=== PATIENT | male | born 1985 | race Caucasian/White ===

== ENCOUNTER 2022-11-08 18:34 | Emergency (ER) | payer OTHER ==
--- NOTE | 2022-11-08 18:38 | ERPHSYRPT ---
- History of Present Illness Time Seen by Provider: 11/08/22 18:37 Source: patient Exam Limitations: no limitations Physician History: Patient is a 37-year-old male presents to our ED via EMS for evaluation after being found unresponsive by his . Upon EMS arrival patient's is administering intranasal Narcan. Patient responded to Narcan. Upon arrival patient was alert and oriented x3. No trauma reported. Timing/Duration: today Severity: moderate Modifying Factors: Improves With: nothing Associated Symptoms: denies symptoms Allergies/Adverse Reactions: No Known Drug Allergies Allergy (Unverified 09/02/12 05:38) Home Medications: No Reportable Medications [No Reported Medications] 11/08/22 [History] Hx Tetanus, Diphtheria Vaccination/Date Given: Yes Hx Influenza Vaccination/Date Given: No Hx Pneumococcal Vaccination/Date Given: No - Review of Systems Constitutional: No Symptoms, No Fever, No Chills Eyes: No Symptoms Ears, Nose, & Throat: No Symptoms Respiratory: No Symptoms, No Cough, No Dyspnea Cardiac: No Symptoms, No Chest Pain, No Edema, No Syncope Abdominal/Gastrointestinal: No Symptoms, No Abdominal Pain, No Nausea, No Vomiting, No Diarrhea Genitourinary Symptoms: No Symptoms, No Dysuria Musculoskeletal: No Symptoms, No Back Pain, No Neck Pain Skin: No Symptoms, No Rash Neurological: No Symptoms, No Dizziness, No Focal Weakness, No Sensory Changes Psychological: No Symptoms Endocrine: No Symptoms Hematologic/Lymphatic: No Symptoms Immunological/Allergic: No Symptoms All Other Systems: Reviewed and Negative - Past Medical History Pertinent Past Medical History: Yes Psycho-Social History: Depression Other Medical History: chronic back pain - Past Surgical History Past Surgical History: No - Social History Smoking Status: Current every day smoker Exposure to second hand smoke: No Patient Lives Alone: No - Nursing Vital Signs Nursing Vital Signs: Initial Vital Signs Temperature 96.7 F 11/08/22 18:38 Pulse Rate 88 11/08/22 18:38 Respiratory Rate 16 11/08/22 18:38 Blood Pressure 141/89 11/08/22 18:38 O2 Sat by Pulse Oximetry 99 11/08/22 18:38 Pain Scale Pain Intensity 0 - Physical Exam General Appearance: no apparent distress, alert Eye Exam: PERRL/EOMI, eyes nml inspection Ears, Nose, Throat Exam: normal ENT inspection, TMs normal, pharynx normal, anila st mucous membranes Neck Exam: normal inspection, non-tender, supple, full range of motion Respiratory Exam: normal breath sounds, lungs clear, airway intact, No respiratory distress Cardiovascular Exam: regular rate/rhythm, normal heart sounds, normal peripheral pulses Gastrointestinal/Abdomen Exam: soft, normal bowel sounds, No tenderness, No mass Back Exam: normal inspection, normal range of motion, No CVA tenderness, No vertebral tenderness Extremity Exam: normal inspection, normal range of motion, pelvis stable Neurologic Exam: alert, oriented x 3, cooperative, normal mood/affect, sensation nml, No motor deficits Skin Exam: normal color, warm, dry, No rash Lymphatic Exam: No adenopathy SpO2 Interpretation: normal SpO2: 99 O2 Delivery: Room Air - Course Nursing assessment & vital signs reviewed: Yes EKG Interpreted by Me: RATE ([id number]), Sinus Rhythm, NORMAL AXIS, NORMAL INTERVALS - CT Exams Chest CT Interpretation: Tele-radiologist Report (No comps. Normal CT PE exam.) Ordered Tests: Active Orders 24 hr Category Date Time Status AMA [Release AMA] OM.NOW Care 11/08/22 21:54 Active CO2 Monitoring STAT Care 11/08/22 18:50 Active Shipping Room Supervisor STAT Care 11/08/22 18:39 Active EKG-ER Only STAT Care 11/08/22 18:38 Active IV Insertion STAT Care 11/08/22 18:38 Active Pulse Oximetry (ED) STAT Care 11/08/22 18:38 Active CHEST 1 VIEW (PORTABLE) Stat Exams 11/08/22 18:39 Taken CHEST WITH CONTRAST [CT] Stat Exams 11/08/22 19:42 Taken ACETAMINOPHEN Stat Lab 11/08/22 18:45 Completed ARTERIAL BLOOD GASES Urgent Lab 11/08/22 18:38 Completed CBC W DIFF Stat Lab 11/08/22 18:45 Completed CMP Stat Lab 11/08/22 18:45 Completed D-DIMER QUANTITATIVE Stat Lab 11/08/22 18:45 Completed ETHYL ALCOHOL Stat Lab 11/08/22 18:45 Completed SALICYLATE Stat Lab 11/08/22 18:45 Completed TROPONIN Q4H Lab 11/08/22 18:45 Completed TROPONIN Q4H Lab 11/08/22 22:45 Ordered TROPONIN Q4H Lab 11/09/22 02:45 Ordered Urine Triage Profile Stat Lab 11/08/22 18:39 Ordered Medication Summary Generic Name Dose Route Start Last Admin Trade Name Freq PRN Reason Stop Dose Admin Sodium Chloride 1,000 mls @ 100 mls/hr 11/08/22 18:45 11/08/22 21:41 Sodium Chloride 0.9% 1000 Ml IV 12/08/22 18:44 999 mls/hr .Q10H ANNABEL Infusion Discontinued Medications Generic Name Dose Route Start Last Admin Trade Name Denis PRN Reason Stop Dose Admin Potassium Chloride 40 meq 11/08/22 21:38 11/08/22 21:43 Potassium Chloride Tab 10 Meq Tab PO 11/08/22 21:39 40 meq STAT ONE Administration Potassium Chloride Confirm 11/08/22 21:42 Potassium Chloride Tab 10 Meq Tab Administered 11/08/22 21:43 Dose 40 meq PO .STK-MED ONE Lab/Rad Data: Laboratory Result Diagrams 11/08/22 18:45 11/08/22 18:45 Laboratory Results 11/08/22 11/08/22 11/08/22 Range/Units 18:45 18:45 18:45 WBC (4.0-10.5) x10^3/uL RBC (4.1-5.6) x10^6/uL Hgb (12.5-18.0) g/dL Hct (42-50) % MCV (78-100) fL MCH (26-32) pg MCHC (32-36) g/dL RDW (11.5-14.0) % Plt Count (150-450) x10^3/uL MPV (7.5-11.0) fL Gran % (36.0-66.0) % Immature Gran % (Auto) (0.00-0.4) % Nucleat RBC Rel Count (0.00-0.1) % Eos # (Auto) (0-0.5) x10^3/uL Immature Gran # (Auto) (0.00-0.03) x10^3u/L Absolute Lymphs (auto) (1.0-4.6) x10^3/uL Absolute Monos (auto) (0.0-1.3) x10^3/uL Absolute Nucleated RBC (0.00-0.01) x10^3u/L Lymphocytes % (24.0-44.0) % Monocytes % (0.0-12.0) % Eosinophils % (0.00-5.0) % Basophils % (0.0-0.4) % Absolute Granulocytes (1.4-6.9) x10^3/uL Basophils # (0-0.4) x10^3/uL D-Dimer 0.81 H* (0.0-0.50) mg/L Puncture Site pCO2 (35-45) mmHg pO2 (75-100) mmHg Base Excess (-2.0-2.0) O2 Saturation (94-100) g/dF ABG pH (7.35-7.45) ABG HCO3 (22-28) ABG O2 Sat (Measured) (95-100) % Channing Test A-a Gradient a/A Ratio Hemoglobin Carboxyhemoglobin (0.0-6.9) % THgb Methemoglobin (1.4-1.5) % Potassium (3.5-5.1) Temperature C POC O2 Flow Rate % Sodium (137-145) mmol/L Chloride (98-107) mmol/L Carbon Dioxide (22-30) mmol/L Anion Gap (5-15) MEQ/L BUN (9-20) mg/dL Creatinine (0.66-1.25) mg/dL Estimated GFR ML/MIN Glucose (74-106) mg/dL Calcium (8.4-10.2) mg/dL Total Bilirubin (0.2-1.3) mg/dL AST (17-59) U/L ALT (0-50) U/L Alkaline Phosphatase (38-126) U/L Troponin I < 0.012 (0.000-0.034) ng/mL Serum Total Protein (6.3-8.2) g/dL Albumin (3.5-5.0) g/dL Salicylates < 1.0 L (2-20) mg/dL Acetaminophen < 10 L (10-30) ug/ml Ethyl Alcohol (0-10) mg/dL 11/08/22 11/08/22 11/08/22 Range/Units 18:45 18:45 18:38 WBC 6.4 (4.0-10.5) x10^3/uL RBC 4.78 (4.1-5.6) x10^6/uL Hgb 13.6 (12.5-18.0) g/dL Hct 42.9 (42-50) % MCV 89.7 (78-100) fL MCH 28.5 (26-32) pg MCHC 31.7 L (32-36) g/dL RDW 12.1 (11.5-14.0) % Plt Count 184 (150-450) x10^3/uL MPV 10.2 (7.5-11.0) fL Gran % 41.9 (36.0-66.0) % Immature Gran % (Auto) 0.0 (0.00-0.4) % Nucleat RBC Rel Count 0.0 (0.00-0.1) % Eos # (Auto) 0.12 (0-0.5) x10^3/uL Immature Gran # (Auto) 0.00 (0.00-0.03) x10^3u/L Absolute Lymphs (auto) 2.95 (1.0-4.6) x10^3/uL Absolute Monos (auto) 0.61 (0.0-1.3) x10^3/uL Absolute Nucleated RBC 0.00 (0.00-0.01) x10^3u/L Lymphocytes % 46.2 H (24.0-44.0) % Monocytes % 9.5 (0.0-12.0) % Eosinophils % 1.9 (0.00-5.0) % Basophils % 0.5 (0.0-0.4) % Absolute Granulocytes 2.68 (1.4-6.9) x10^3/uL Basophils # 0.03 (0-0.4) x10^3/uL D-Dimer (0.0-0.50) mg/L Puncture Site LEFT RADIAL pCO2 47 H (35-45) mmHg pO2 98 (75-100) mmHg Base Excess 3.5 H (-2.0-2.0) O2 Saturation 95.1 (94-100) g/dF ABG pH 7.40 (7.35-7.45) ABG HCO3 29.1 H* (22-28) ABG O2 Sat (Measured) 99.1 (95-100) % Channing Test yes A-a Gradient -7 a/A Ratio 1.08 Hemoglobin 14.1 Carboxyhemoglobin 3.2 (0.0-6.9) % THgb Methemoglobin 0.8 L (1.4-1.5) % Potassium 3.4 L 3.3 L (3.5-5.1) Temperature 37.0 C POC O2 Flow Rate 21 % Sodium 142 (137-145) mmol/L Chloride 100 (98-107) mmol/L Carbon Dioxide 27 (22-30) mmol/L Anion Gap 18.8 H (5-15) MEQ/L BUN 14 (9-20) mg/dL Creatinine 1.27 H (0.66-1.25) mg/dL Estimated GFR > 60.0 ML/MIN Glucose 187 H (74-106) mg/dL Calcium 8.8 (8.4-10.2) mg/dL Total Bilirubin 0.80 (0.2-1.3) mg/dL AST 56 (17-59) U/L ALT 31 (0-50) U/L Alkaline Phosphatase 79 (38-126) U/L Troponin I (0.000-0.034) ng/mL Serum Total Protein 7.4 (6.3-8.2) g/dL Albumin 4.4 (3.5-5.0) g/dL Salicylates (2-20) mg/dL Acetaminophen (10-30) ug/ml Ethyl Alcohol < 10 (0-10) mg/dL - Progress Progress: improved Progress Note: Patient reassessed. Patient is alert and oriented x4. Work-up reveals mild hypokalemia. Potassium replacement ordered. Lab evaluation reveals dehydration. IV fluids administered. Patient observed in our ED for approximately 3 to 4 hours. Patient maintained normal level of consciousness without additional Narcan administration. Patient's presented to our ED. She advised that patient has a history of narcotic abuse. Patient states that he overdosed on his 's [place]. acknowledges that patient has a history of narcotic abuse and therefore administered Narcan. Patient responded to the Narcan. Patient states he feels well. Vital stable. Patient requesting discharge. We advised admission due to the need for further observation. Patient declined. Patient request to leave AGAINST MEDICAL ADVICE. Patient is of sound mind. Patient is appropriate to make informed and independent medical decisions. Patient understands that leaving AGAINST MEDICAL ADVICE can result in delayed diagnosis, increased risk of morbidity, mortality, short and long-term disability including . In spite of these risks, patient has decided to leave AGAINST MEDICAL ADVICE. Patient understands that he may return to our ED at any point if he reconsiders. Patient agrees to follow-up with his primary care doctor within 48 hours for reevaluation. Patient voices no other complaints or concerns at this time. We will release patient AGAINST MEDICAL ADVICE per their request. Testing includes EKG, chest x-ray, CTA chest, acetaminophen level, CBC, CMP, D- dimer which resulted as positive. Positive D-dimer is the reason why CTA chest was ordered. Detailed H level ordered. Aspirin level ordered. Urine triage ordered. Troponin ordered. Patient has not urinated therefore urine triage has not been performed. Patient left AMA before urine triage can be performed. ABG ordered. Work-up reveals low potassium. Patient received oral potassium replacement. IV fluids administered. Patient will leave AGAINST MEDICAL ADVICE. Complexity of problem addressed is acute. Complexity is high. Patient was somewhat confused patient had acutely overdosed on [place]. Age gender, PMH/PQ , (co-morbidities that complicate presentation) , med class, PSH, (smoker) method of arrival, CC (acute, chronic or acute on chronic), State COPA level and why or if critical. vitals, Significant ROS/PE findings, working diagnoses, No critical care time. Complexity of data reviewed and analyzed is moderate. Test ordered. Test reviewed. EMS served as independent historian. Patient significant other also contributed significantly to the HPI. Patient did not serve as independent historian. Risk of complication and or risk of morbidity/mortality of patient management is high. However patient agrees to follow-up with his primary care doctor within 48 hours for evaluation. Patient acknowledges that he has a severe addiction problem. Patient states he will seek help for further evaluation and treatment. P portions of this note were created with voice recognition technology. There may be grammatical, spelling, punctuation or sound alike errors Vital stable at time of discharge. 11/08/22 22:07 11/08/22 22:11 Counseled pt/family regarding: lab results, diagnosis, need for follow-up, rad results - Departure Departure Disposition: AMA Clinical Impression: [place] overdose, Hypokalemia, Dehydration Condition: Stable Critical Care Time: No Referrals: CINDI MONTIEL [NON-STAFF PHY W/O PRIVILEGES] - Follow up/PCP as directed Additional Instructions: Discharge/Care Plan LEE URIOSTEGUI JAYSON was seen on 11/08/22 in the Emergency Room. The patient was counseled regarding Diagnosis,Lab results, Imaging studies, need for follow up and when to return to the Emergency Room. Prescriptions given: Discharge Note I have spoken with the patient and/or caregivers. I have explained the patient's condition, diagnosis and treatment plan based on the information available to me at this time. I have answered the patient's and/or caregiver's questions and addressed any concerns. The patient and/or caregivers have as good understanding of the patient's diagnosis, condition and treatment plan as can be expected at this point. The vital signs have been stable. The patient's condition is stable and appropriate for discharge from the emergency department. The patient will pursue further outpatient evaluation with the primary care jc terrell or other designated or consulting physician as outlined in the discharge instructions. The patient and/or caregivers are agreeable to this plan of care and follow-up instructions have been explained in detail. The patient and/or caregivers have received these instruction. The patient/and or caregivers are aware that any significant change in condition or worsening of symptoms should prompt an immediate return to this or the closest emergency department or call 911.
[2022-11-08] MEDS ORDERED: Sodium Chloride 0.9% 1000 ML 1,000 ML IV SCH (18:45)
[2022-11-08 18:48] LABS: A-aADO2 -7; ABG HEMOGLOBIN 14.1; ABG POTASSIUM 3.3 (3.5-5.1); ABG SITE LEFT RADIAL; ALLEN TEST OK? yes; ARTERIAL BLD GAS O2 SATURATION 99.1 % (95-100); ARTERIAL BLOOD GAS BASE EXCESS 3.5 (-2.0-2.0); ARTERIAL BLOOD GAS FIO2 21 %; ARTERIAL BLOOD GAS PCO2 47 mmHg (35-45); ARTERIAL BLOOD GAS PO2 98 mmHg (75-100); CARBOXYHEMOGLOBIN 3.2 % THgb (0.0-6.9); HCO3- 29.1 (22-28); HGB O2 SAT 95.1 g/dF (94-100); Methhemoglobin 0.8 % (1.4-1.5); paO2 pAO1 1.08
[2022-11-08] MEDS ORDERED: Sodium Chloride 0.9% 1000 ML 1,000 ML ONE (18:54)
[2022-11-08 18:56] LABS: Absolute Neutrophil Ct (ANC) 2.68 x10^3/uL (1.4-6.9); BASOPHIL % 0.5 % (0.0-0.4); Basophil (Absolute #) 0.03 x10^3/uL (0-0.4); Eosinophil % 1.9 % (0.00-5.0); Eosinophil (Absolute #) 0.12 x10^3/uL (0-0.5); Hematocrit 42.9 % (42-50); Hemoglobin 13.6 g/dL (12.5-18.0); Lymphocyte (Absolute #) 2.95 x10^3/uL (1.0-4.6); Lymphocytes % 46.2 % (24.0-44.0); Mean Cell Volume 89.7 fL (78-100); Mean Corpuscular Hemoglobin 28.5 pg (26-32); Mean Corpuscular Hgb Concent. 31.7 g/dL (32-36); Mean Platelet Volume 10.2 fL (7.5-11.0); Monocyte (Absolute #) 0.61 x10^3/uL (0.0-1.3); Monocytes % 9.5 % (0.0-12.0); Neutrophil % 41.9 % (36.0-66.0); Platelet Count 184 x10^3/uL (150-450); Red Blood Count 4.78 x10^6/uL (4.1-5.6); Red Cell Distribution Width 12.1 % (11.5-14.0); White Blood Count 6.4 x10^3/uL (4.0-10.5)
[2022-11-08 19:13] LABS: ACETAMINOPHEN < 10 ug/ml (10-30); ALBUMIN 4.4 g/dL (3.5-5.0); ALKALINE PHOSPHATASE 79 U/L (38-126); ANION GAP 18.8 MEQ/L (5-15); BLOOD UREA NITROGEN 14 mg/dL (9-20); CHLORIDE 100 mmol/L (98-107); Calcium 8.8 mg/dL (8.4-10.2); Carbon Dioxide 27 mmol/L (22-30); Creatinine 1 1.27 mg/dL (0.66-1.25); EST GLOMERULAR FILTRATION RATE > 60.0 ML/MIN; ETHYL ALCOHOL < 10 mg/dL (0-10); Glucose 187 mg/dL (74-106); Potassium 3.4 mmol/L (3.5-5.1); SALICYLATE < 1.0 mg/dL (2-20); SGOT/AST 56 U/L (17-59); SGPT/ALT 31 U/L (0-50); SODIUM 142 mmol/L (137-145); Total Protein 7.4 g/dL (6.3-8.2)
[2022-11-08 21:14] VITALS: BP 113/71; PULSE 67
[2022-11-08] MEDS ORDERED: Klor Con PO ONE ×2 (21:38→21:42)
[2022-11-08 21:45] VITALS: O2SAT 99
--- NOTE | 2022-11-09 08:37 | XRAY ---
Indication: Short of breath. Found unresponsive. Comparison: None Portable chest demonstrates normal heart, lungs, and bony thorax with incidental left retrocardiac calcified granuloma.
--- NOTE | 2022-11-09 08:37 | XRAY ---
Indication: Short of breath. Elevated d-dimer. Dominant embolus. Multiple contiguous axial images obtained through the chest using 80 cc Isovue 370 contrast and PE protocol. Comparison: None Good opacification of the pulmonary arteries to include the lobar and segmental branches. No pulmonary embolus. Heart is not enlarged. Aorta is normal in course and caliber. A few tiny subcarinal and chunky left infrahilar calcified nodes. No pathologic mediastinal/hilar lymphadenopathy. Lungs inflated and clear with incidental tiny left posterior gutter calcified granuloma. Bony thorax intact. Limited upper abdomen including adrenal glands are unremarkable. Impression: 1. Negative pulmonary embolus. No acute cardiopulmonary abnormalities. 2. Incidental old granulomatous disease.
== END 2022-11-08 22:10 | disposition left against medical advice (07) ==
LOC: ED 18:34
DX: T40.2X1A Poisoning by other opioids, accidental (unintentional), initial encounter (principal); T39.1X1A Poisoning by 4-Aminophenol derivatives, accidental (unintentional), initial encounter; R40.4 Transient alteration of awareness; E87.6 Hypokalemia; E86.0 Dehydration; Z72.0 Tobacco use
CPT/HCPCS: 36000; 36415; 36600; 71045; 71260; 80053; 80143; 80179; 82077; 82375; 82803; 84484; 85025; 85379; 93005; 93041; 94760; 96360; 96361; 99284; A9270-GY

== ENCOUNTER 2024-05-15 14:48 | Emergency (ER) | payer OTHER ==
[2024-05-15] MEDS ORDERED: XYLOCAINE 1% HCL 20 ML MDV ONE (14:58)
[2024-05-15 15:13] VITALS: RESP 18; TEMP 97.8; O2SAT 97
[2024-05-15] MEDS ORDERED: Adacel Vial IM ONE (15:16)
[2024-05-15] MEDS: XYLOCAINE 1% HCL 20 ML MDV IJ ONE (15:22)
[2024-05-15] MEDS: Adacel Vial IM ONE (15:24)
[2024-05-15 15:40] VITALS: BP 133/81; PULSE 72
--- NOTE | 2024-05-15 15:40 | ERPHSYRPT ---
- History of Present Illness Time Seen by Provider: 05/15/24 15:09 Source: patient Exam Limitations: no limitations Patient Subjective Stated Complaint: Laceration Triage Nursing Assessment: Patient ambulated back to ED and transferred to bed per self. Patient A+O X 3. Patient's skin pink, warm and dry. Patient complains of laceration to left posterior forearm. Patient was laying carpet when his utility knife slipped causing laceration. Patient has laceration to posterior forarm 4cm X 1 cm. Patient denies pain or discomfort. Physician History: 38-year-old right-handed dominant male presented in the ER with complaint of left forearm laceration. Patient reports he was working with his knife and accidentally slipped and cut his left forearm. There was bleeding initially but stopped with applying pressure. Denies any difficulty movements at rest and fingers. Unsure about tetanus status. Mild pain with palpation. No injury anywhere else. 4 cm superficial laceration left forearm medial aspect with minimal oozing. No exposed muscle or tendons. Intact distal neurovascular. Laceration is repaired. Tetanus is updated. Recommended taking Tylenol ibuprofen, intermittent ice application and outpatient follow-up. Allergies/Adverse Reactions: No Known Drug Allergies Allergy (Verified 05/15/24 15:05) Home Medications: No Reportable Medications [No Reported Medications] 11/08/22 [History] Hx Tetanus, Diphtheria Vaccination/Date Given: No Hx Influenza Vaccination/Date Given: No Hx Pneumococcal Vaccination/Date Given: No Immunizations Up to Date: Yes Travel Risk - International Travel Have you traveled outside of the country in past 3 weeks: No - Emerging Infectious Disease Are you exhibiting symptoms associated with any current EIDs: No - Review of Systems Constitutional: No Symptoms Ears, Nose, & Throat: No Symptoms Respiratory: No Symptoms Cardiac: No Symptoms Abdominal/Gastrointestinal: No Symptoms Musculoskeletal: Injury Skin: No Symptoms Neurological: No Symptoms Endocrine: No Symptoms Hematologic/Lymphatic: No Symptoms - Past Medical History Pertinent Past Medical History: Yes Psycho-Social History: Depression Other Medical History: chronic back pain - Past Surgical History Past Surgical History: No Neuro Surgical History: No Pertinent History Cardiac: No Pertinent History Respiratory: No Pertinent History Gastrointestinal: No Pertinent History Genitourinary: No Pertinent History Musculoskeletal: No Pertinent History Male Surgical History: No Pertinent History - Social History Smoking Status: Current every day smoker How long have you smoked: years Exposure to second hand smoke: No Drug Use: none Patient Lives Alone: No - Social Determinants of Health Will the patient participate in the screening: Yes Do you worry about a steady place to live?: No Do you have any problems with any of the following?: No known problems In the past 12 months,have you had to go without utilities?: No Transportation Issues: No Has anyone in your support network made you feel unsafe?: No Have you or anyone in your house had to go without enough: No - Nursing Vital Signs Nursing Vital Signs: Initial Vital Signs Temperature 97.8 F 05/15/24 15:06 Pulse Rate 75 05/15/24 15:06 Respiratory Rate 18 05/15/24 15:06 Blood Pressure 134/79 05/15/24 15:06 O2 Sat by Pulse Oximetry 97 05/15/24 15:06 Pain Scale Pain Intensity 0 - Physical Exam General Appearance: no apparent distress Neck Exam: normal inspection, supple, full range of motion Cardiovascular/Respiratory Exam: normal breath sounds, regular rate/rhythm Elbow/Forearm Exam: normal inspection, normal ROM, soft tissue tenderness Wrist Exam: normal inspection, non-tender, no evidence of injury, normal ROM Hand Exam: normal inspection, non-tender, no evidence of injury, normal ROM Neuro/Tendon Exam: normal sensation, normal motor functions Mental Status Exam: alert, oriented x 3, cooperative Skin Exam: normal color SpO2 Interpretation: normal SpO2: 97 O2 Delivery: Room Air Procedures - Laceration/Wound Repair Left Anterior Medial Arm Time of Procedure: 15:35 Wound Location: Left Wound Length (cm): 4 Wound's Depth, Shape: linear Wound Explored: clean Irrigated: Yes Hibiclens Prep: Yes Anesthesia: 1% Lidocaine Volume Anesthetic (ccs): 3 Wound Repaired With: sutures Suture Size/Type: 4-0 Number of Sutures: 8 Layer Closure?: Yes Sterile Dressing Applied?: Yes Ordered Tests: Medication Summary Discontinued Medications Generic Name Dose Route Start Last Admin Trade Name Freq PRN Reason Stop Dose Admin Diphtheria/Tetanus/Acell Pertussis 0.5 ml 05/15/24 15:23 05/15/24 15:24 Tdap --Diph,Pertuss(Acell),Tet Vac/Pf 0.5 Ml Vial IM 05/15/24 15:24 0.5 ml .ONCE ONE Administration Lidocaine HCl Confirm 05/15/24 14:58 Lidocaine Hcl 1% 20 Ml Mdv 20 Ml Ml Administered 05/15/24 14:59 Dose 5 ml .ROUTE .STK-MED ONE Lidocaine HCl 5 ml 05/15/24 15:14 05/15/24 15:22 Lidocaine Hcl 1% 20 Ml Mdv 20 Ml Ml IJ 05/15/24 15:15 5 ml STAT ONE Administration - Progress Progress: improved Progress Note: 05/15/24 15:43 38-year-old right-handed dominant male presented in the ER with complaint of left forearm laceration. Patient reports he was working with his knife and accidentally slipped and cut his left forearm. There was bleeding initially but stopped with applying pressure. Denies any difficulty movements at rest and fingers. Unsure about tetanus status. Mild pain with palpation. No injury anywhere else. 4 cm superficial laceration left forearm medial aspect with minimal oozing. No exposed muscle or tendons. Intact distal neurovascular. Laceration is repaired. Tetanus is updated. Recommended taking Tylenol ibuprofen, intermittent ice application and outpatient follow-up. Counseled pt/family regarding: diagnosis, need for follow-up Medical Desision Making - Risk of complications The pt has a mod risk of morbidity or mortality based on: Need for minor surgical intervention in patient with know risk factors - Departure Departure Disposition: Observation Clinical Impression: Forearm laceration Condition: Stable Critical Care Time: No Referrals: DOCTOR,NO FAMILY [Primary Care Provider] - Follow up/PCP as directed Instructions: Laceration Repair With Stitches (DC) Additional Instructions: take tylenol/ibuprofen for pain as needed. intermittent ice application , follow up with PCP for re evaluation, Return for worsening pain/swelling/discharge or fever chills. suture removal in 14 days
== END 2024-05-15 16:01 | disposition home or self-care (01) ==
LOC: ED 14:48
DX: S51.812A Laceration without foreign body of left forearm, initial encounter (principal); W26.0XXA Contact with knife, initial encounter; Y93.H3 Activity, building and construction; Y99.0 Civilian activity done for income or pay; Z72.0 Tobacco use; Z23 Encounter for immunization
CPT/HCPCS: 12032; 90471; 90715; 96372; 99283